=== PATIENT | female | born 1950 ===

== ENCOUNTER → 2017-05-18 | Outpatient (CLI) | payer OTHER | LOC: FIMAGING 07:59 | PROVIDERS: ATTEND Internal Medicine | DX: Z12.31 Encounter for screening mammogram for malignant neoplasm of breast (principal) | CPT/HCPCS: G0202 ==

== ENCOUNTER → 2018-02-15 | Outpatient (CLI) | payer OTHER | LOC: FIMAGING 09:09 | PROVIDERS: ATTEND Nurse Practitioner | DX: Z13.820 Encounter for screening for osteoporosis (principal); M54.9 Dorsalgia, unspecified; Z87.81 Personal history of (healed) traumatic fracture ==

== ENCOUNTER → 2018-07-04 | Outpatient (CLI) | payer OTHER | LOC: FIMAGING 09:00 | PROVIDERS: ATTEND Nurse Practitioner | DX: Z12.31 Encounter for screening mammogram for malignant neoplasm of breast (principal) ==

== ENCOUNTER 2018-09-14 14:13 | Observation (INO) | payer OTHER ==
[2018-09-14] MEDS ORDERED: NS 1,000 ML IV ONE (14:28)
--- NOTE | 2018-09-14 14:34 | EDPHY ---
H & P Stated Complaint: bilat forearm/elbow pain to axilia pain x10 days,"sweaty "x24hrs Source: Patient Exam Limitations: No limitations - Medical/Surgical History Hx Asthma: No Hx Chronic Respiratory Disease: No Hx Diabetes: Yes Hx Cardiac Disease: No Hx Renal Disease: No Hx Cirrhosis: No Hx Alcoholism: No Hx HIV/AIDS: No Hx Splenectomy or Spleen Trauma: No Other PMH: med hx- IBS, HTN,Heart murmur,diabetes type 2. surg- marycruz,hyst and appy - Family History Significant Family History: Heart disease, Vascular disease - Social History Smoking Status: Former smoker Alcohol Use: Sober Drug Use: None Time Seen by Provider: 09/14/18 14:25 HPI/ROS: CHIEF COMPLAINT: Chest pain HISTORY OF PRESENT ILLNESS: Patient is a 67-year-old female with history of diabetes and hypertension who comes to the emergency department complaining of bilateral elbow pain for the last week. She states that her left elbow appears slightly swollen. She denies any trauma or injury. She states that last night around 10:00 p.m. The pain began radiating up her left arm into her axilla and lateral chest wall and also at her lateral left neck. She again denies any trauma or injury. No fevers. No cough or shortness of breath. No dizziness or lightheadedness. She knows that she was diaphoretic last night and again this morning. Her symptoms improved slightly with ibuprofen. She takes aspirin daily and did take a full aspirin today. She denies any history of heart disease but her mom did have a heart attack. Severity: Moderate Modifying factors: Some improvement with ibuprofen REVIEW OF SYSTEMS: Constitutional: denies: chills, fever, recent illness, recent injury EENTM: denies: blurred vision, double vision, nose congestion Respiratory: denies: cough, shortness of breath Cardiac: See HPI Gastrointestinal/Abdominal: denies: abdominal pain, diarrhea, nausea, vomiting, blood streaked stools Genitourinary: denies: dysuria, frequency, hematuria, pain Musculoskeletal: denies: joint pain, muscle pain Skin: denies: lesions, rash, jaundice, bruising Neurological: denies: headache, numbness, paresthesia, tingling, dizziness, weakness Hematologic/Lymphatic: denies: blood clots, easy bleeding, easy bruising Immunologic/allergic: denies: HIV/AIDS, transplant 10 systems reviewed and negative except as noted EXAM: GENERAL: Well-appearing, overweight and in no acute distress. HEAD: Atraumatic, normocephalic. EYES: Pupils equal round and reactive to light, extraocular movements intact, sclera anicteric, conjunctiva are normal. ENT: TMs normal, nares patent, oropharynx clear without exudates. Moist mucous membranes. NECK: Normal range of motion, supple without lymphadenopathy or JVD. LUNGS: Breath sounds clear to auscultation bilaterally and equal. No wheezes rales or rhonchi. HEART: Regular rate and rhythm without murmurs, rubs or gallops. ABDOMEN: Soft, nontender, normoactive bowel sounds. No guarding, no rebound. No masses appreciated. BACK: No CVA tenderness, no spinal tenderness, step-offs or deformities EXTREMITIES: Normal range of motion, no pitting or edema. No clubbing or cyanosis. NEUROLOGICAL: Cranial nerves II through XII grossly intact. Normal speech, normal gait. 5/5 strength, normal movement in all extremities, normal sensation , normal reflexes PSYCH: Normal mood, normal affect. SKIN: Warm, dry, normal turgor, no visible rashes or lesions. 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 [employer] ( Raheel Villarreal) Constitutional: Initial Vital Signs Temperature (C) 36.8 C 09/14/18 14:17 Heart Rate 75 09/14/18 14:17 Respiratory Rate 16 09/14/18 14:17 Blood Pressure 158/83 H 09/14/18 14:17 O2 Sat (%) 96 09/14/18 14:17 O2 Delivery Mode Room Air Allergies/Adverse Reactions: No Known Allergies Allergy (Verified 09/14/18 14:23) Home Medications: Medication Instructions Recorded Cholecalciferol Vit D3 [Vitamin D3 1,000 units PO DAILY 08/09/15 (*)] Hydrochlorothiazide 25 mg PO DAILY 08/09/15 Olmesartan Medoxomil [Benicar] 20 mg PO DAILY 08/09/15 Pantoprazole Sodium [Protonix 40mg 40 mg PO DAILY 08/09/15 (*)] Temazepam [Restoril 15 MG (*)] 15 mg PO HS PRN 08/09/15 Aspirin EC [Aspirin EC 325 mg (*)] 325 mg PO DAILY 09/14/18 Fluticasone Nasal [Flonase Nasal 1 sprays NASAL BID 09/14/18 [place]] metFORMIN HCL [Glucophage 1000 mg] 1,000 mg PO BIDMEAL 09/14/18 oxyCODONE IR [Oxycodone Ir (*)] 5 mg PO Q4HRS PRN #20 tab 09/15/18 Medical Decision Making - Diagnostics EKG Interpretation: An EKG obtained and was read and documented in trace view. Please see trace view for full reading and report. An EKG obtained and was read and documented in trace view. Please see trace view for full reading and report. Sinus rhythm , no acute ischemic changes, no previous for comparison (Harsha Finley) Imaging Results: Imaging Impressions Chest X-Ray 09/14/18 14:28 Impression: 1. Mild chronic bronchitis. 2. No definite pneumonia. 3. No pleural effusion or pneumothorax. Two view chest x-ray: No focal infiltrates or other significant abnormalities by my interpretation (Raheel Villarreal) ED Course/Re-evaluation: This patient signed over to me at 3:00 p.m.. I interviewed the patient and she described having intermittent pains primarily in her left arm over the past 2 weeks since doing a CPR QI. However today at 11:00 a.m. She developed pain that radiated from her arm into her lateral chest and became severe intensity up to 10/10 for period of 20 min or so associated with diaphoresis and nausea. The pain is been constant since 11:00 a.m. Today and is now 6/10 intensity with no clear exacerbating factors. The onset was at rest. She does not recall having this type of discomfort before. She describes it as achy in nature. On her exam currently she has normal vital signs Eyes: Pupils equal react to light extraocular motions are intact Lungs: clear lungs bilaterally Cardiovascular: Regular rate and rhythm with no murmur gallop rub. No JVD or peripheral edema Neuro: GCS 15 no focal deficits Integumentary: No diaphoresis Given her ongoing discomfort and a flat T-wave in V2 on her EKG along with risk factors for coronary disease, ordered supple nitroglycerines. Patient had aspirin prior to arrival. I explained her the given her pain and risk factors for coronary disease she warrants admission. Patient understands in agrees with treatment plan for admission to [facility] Patient had resolution of her chest pain after 1 sublingual nitroglycerin remained stable on the monitor without symptoms for the rest of her ED course. I counseled regarding her heart score of 6-7 warranting admission. Patient reluctantly agrees to this but declines ACLS transport. She will have her drive her. She accepts the potential risk of cardiac arrest from going without EMS transport and accepts that risk. I discussed case with Dr. Michele Campbell, hospitalist who accepts patient for transfer to [facility] to PCU for further workup (Raheel Villarreal) 3:00 p.m. patient's lab work and x-ray are pending. Care transferred to Dr. Raheel Villarreal. (Harsha Finley) Differential Diagnosis: Partial list of the Differential diagnosis considered include but were not limited to; acute coronary disease, PE, musculoskeletal pain and although unlikely based on the history and physical exam, I also considered dissection, pneumonia. (Harsha Finley) - Data Points Laboratory Results: Laboratory Results 09/14/18 14:48 POC CBC, metabolic panel, D-dimer are all normal (Raheel Villarreal) Medications Given: Discontinued Medications Acetaminophen (Tylenol) 1,000 mg PO EDNOW ONE Stop: 09/14/18 15:38 Last Admin: 09/14/18 15:40 Dose: 1,000 mg Acetaminophen (Tylenol) 650 mg PO Q6HRS PRN PRN Reason: Pain, Mild/Fever, Can Take PO Stop: 03/13/19 18:14 Last Admin: 09/15/18 06:09 Dose: 650 mg Aspirin (Aspirin) 325 mg PO DAILY STEVE Stop: 03/14/19 08:59 Last Admin: 09/15/18 07:59 Dose: 325 mg Enoxaparin Sodium (Lovenox) 40 mg SC DAILY STEVE Stop: 03/14/19 08:59 Last Admin: 09/15/18 08:00 Dose: Not Given Fluticasone Propionate (Flonase Nasal [place]) 1 sprays [place] BID STEVE Stop: 03/13/19 20:59 Last Admin: 09/15/18 17:27 Dose: Not Given Hydrochlorothiazide (Hydrochlorothiazide) 25 mg PO DAILY [facility] Stop: 03/14/19 08:59 Last Admin: 09/15/18 07:59 Dose: 25 mg Sodium Chloride (Ns) 1,000 mls @ 0 mls/hr IV EDNOW ONE; Wide Open PRN Reason: Protocol Stop: 09/14/18 14:29 Last Admin: 09/14/18 14:51 Dose: 1,000 mls Metformin HCl (Glucophage) 1,000 mg PO BIDMEAL STEVE Stop: 03/14/19 07:59 Last Admin: 09/15/18 07:59 Dose: 1,000 mg Nitroglycerin (Nitrostat) 0.4 mg SL Q5M PRN PRN Reason: Chest Pain Last Admin: 09/14/18 15:17 Dose: 0.4 mg Olmesartan (Benicar) 20 mg PO DAILY [facility] Stop: 03/14/19 08:59 Last Admin: 09/15/18 07:59 Dose: 20 mg Pantoprazole Sodium (Protonix) 40 mg PO DAILY [facility] Stop: 03/14/19 08:59 Last Admin: 09/15/18 07:59 Dose: 40 mg Point of Care Test Results: Chemistry 09/14/18 14:57 POC Troponin I 0.01 ng/mL ng/mL (0.00-0.08) Comprehensive Metabolic Panel CMP Collection Date 09/14/18 CMP Collection Time 14:40 Sodium 145 Potassium 3.3 Chloride 106 TCO2 26 Glucose 120 BUN 15 Creatinine 0.9 Calcium 10.3 Total Protein 7.4 Albumin 3.9 Alkaline Phosphatase 62 ALT 33 AST 38 Total Bilirubin 0.6 Basic Metabolic Panel Chloride 106 Creatinine 0.9 D-Dimer D-Dimer Collection Date 09/14/18 D-Dimer Collection Time 14:48 D-Dimer (ng/ml) <100NG/ML Departure - Departure Disposition: [facility] Inpatient Acute Clinical Impression: Chest pain Qualifiers: Chest pain type: unspecified Qualified Code(s): R07.9 - Chest pain, unspecified Condition: Fair
--- NOTE | 2018-09-14 14:59 | CPEKG ---
Test Reason : OPEN Blood Pressure : / mmHG Vent. Rate : 068 BPM Atrial Rate : 067 BPM P-R Int : 153 ms QRS Dur : 088 ms QT Int : 401 ms P-R-T Axes : 018 024 006 degrees QTc Int : 427 ms Sinus rhythm Borderline T abnormalities, anterior leads Confirmed by Harsha Finley ([id number]) on 09/14/2018 2:58:58 PM Referred By: Confirmed By:Harsha Finley
[2018-09-14] MEDS ORDERED: NITROGLYCERIN 0.4 MG BTL SL PRN ×2 (15:09→17:58)
[2018-09-14] MEDS ORDERED: ACETAMINOPHEN 500 MG TAB PO ONE (15:37)
[2018-09-14 15:59] LABS: PLATELET COUNT 169 10^3/uL (150-400)
[2018-09-14] MEDS ORDERED: oxyCODONE IR 5 MG TAB PO PRN (18:15)
[2018-09-14] MEDS ORDERED: TEMAZEPAM 15 MG CAP PO PRN (20:03)
--- NOTE | 2018-09-14 20:31 | PDGENHP ---
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 She was recertified for CPR/ BLS about 2 weeks ago. Since that time she's had left forearm muscle pain. Yesterday she noticed the pain radiated up her left arm. Then this morning the pain again radiated up her arm to her chest. This was associated with diaphoresis and nausea which prompted her to go to the ED at [facility]. At the [facility], her pain was relieved with one dose of nitroglycerin. The pain is not exertional , pleuritic, or positional. She hasn't had symptoms like this before. Denies associated dizziness or palpitations. She had a stress test about 20 years ago that was normal. At the [facility], she had a negative troponin and non-ischemic ECG. Given her elevated HEART score she was sent to [facility] for further testing. History Information - Allergies/Home Medication List Allergies/Adverse Reactions: No Known Allergies Allergy (Verified 09/14/18 14:23) Home Medications: Cholecalciferol Vit D3 [Vitamin D] 1,000 units PO DAILY 08/09/15 [Last Taken ] Hydrochlorothiazide [Hydrochlorothiazide] 25 mg PO DAILY 08/09/15 [Last Taken ] Olmesartan Medoxomil [Benicar] 20 mg PO DAILY 08/09/15 [Last Taken 09/14/18] Pantoprazole Sodium [Protonix] 40 mg PO DAILY 08/09/15 [Last Taken 09/14/18] Temazepam [Restoril] 15 mg PO HS PRN 08/09/15 [Last Taken 09/13/18] Aspirin EC [Aspirin EC 325 mg (*)] 325 mg PO DAILY 09/14/18 [Last Taken 09/14/18 ] Fluticasone Nasal [Flonase Nasal [place] (RX)] 1 sprays NASAL BID 09/14/18 [Last Taken 09/13/18] metFORMIN HCL [Glucophage 1000 mg] 1,000 mg PO BIDMEAL 09/14/18 [Last Taken ] I have personally reviewed and updated: family history, medical history, social history, surgical history - Past Medical History Additional medical history: hypertension, type 2 non-insulin dependent diabetes , gerd - Surgical History Additional surgical history: hysterectomy, cholecystectomy - Family History Additional family history: mother with CAD in 70s, + diabetes, no known early CAD - Social History Smoking Status: Former smoker Alcohol Use: Sober Drug Use: None Additional social history: Lives with , 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[facility] [employer] Review of Systems Review of Systems: ROS: 10pt was reviewed & negative except for what was stated in HPI & below Physical Exam Physical Exam: Temp Pulse Resp BP Pulse Ox 36.6 C 67 13 139/75 H 98 09/14/18 18:05 09/14/18 18:05 09/14/18 18:05 09/14/18 18:05 09/14/18 18:05 Constitutional: no apparent distress, appears nourished, not in pain Eyes: PERRL, anicteric sclera, EOMI Ears, Nose, Mouth, Throat: moist mucous membranes, hearing normal, ears appear normal, no oral mucosal ulcers Cardiovascular: regular rate and rhythym, no murmur, rub, or gallop, No edema Respiratory: no respiratory distress, no rales or rhonchi, clear to auscultation Gastrointestinal: normoactive bowel sounds, soft, non-tender abdomen, no palpable masses Genitourinary: no bladder fullness, no bladder tenderness Skin: warm, normal color, no rashes or abrasions, no fluctuance, no induration, No mottled Musculoskeletal: other (tenderness over left arm) Neurologic: AAOx3 Psychiatric: interacting appropriately, not anxious, not encephalopathic, thought process linear Lab Data & Imaging Review 09/14/18 14:48 WBC 7.44 10^3/uL (3.80-9.50) 09/14/18 14:48 RBC 4.48 10^6/uL (4.18-5.33) 09/14/18 14:48 Hgb 13.6 g/dL (12.6-16.3) 09/14/18 14:48 Hct 38.7 % (38.0-47.0) 09/14/18 14:48 MCV 86.4 fL (81.5-99.8) 09/14/18 14:48 MCH 30.4 pg (27.9-34.1) 09/14/18 14:48 MCHC 35.1 g/dL (32.4-36.7) 09/14/18 14:48 RDW 12.9 % (11.5-15.2) 09/14/18 14:48 Plt Count 169 10^3/uL (150-400) 09/14/18 14:48 MPV 13.0 fL (8.7-11.7) H 09/14/18 14:48 Neut % (Auto) 65.5 % (39.3-74.2) 09/14/18 14:48 Lymph % (Auto) 25.9 % (15.0-45.0) 09/14/18 14:48 [place] % (Auto) 6.3 % (4.5-13.0) 09/14/18 14:48 Eos % (Auto) 1.3 % (0.6-7.6) 09/14/18 14:48 Baso % (Auto) 0.7 % (0.3-1.7) 09/14/18 14:48 Nucleat RBC Rel Count 0.0 % (0.0-0.2) 09/14/18 14:48 Absolute Neuts (auto) 4.87 10^3/uL (1.70-6.50) 09/14/18 14:48 Absolute Lymphs (auto) 1.93 10^3/uL (1.00-3.00) 09/14/18 14:48 Absolute Monos (auto) 0.47 10^3/uL (0.30-0.80) 09/14/18 14:48 Absolute Eos (auto) 0.10 10^3/uL (0.03-0.40) 09/14/18 14:48 Absolute Basos (auto) 0.05 10^3/uL (0.02-0.10) 09/14/18 14:48 Absolute Nucleated RBC 0.00 10^3/uL (0-0.01) 09/14/18 14:48 Immature Gran % 0.3 % (0.0-1.1) 09/14/18 14:48 Immature Gran # 0.02 10^3/uL (0.00-0.10) 09/14/18 14:48 POC Troponin I 0.01 ng/mL (0.00-0.08) 09/14/18 14:57 Visualized and Interpreted imaging results: Yes Interpretation: CXR: no infiltrate or effusion, normal heart size Visualized and Interpreted EKG results: Yes EKG additional interpertation: ECG: NSR, flattened T wave in V2, no ischemic changes, good R wave progression Assessment & Plan Assessment: 67yo F with history of htn, 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 Plan: 1. Chest discomfort: Somewhat atypical pain for angina, seems more consistent with MSK etiology but given her intermediate risk of coronary disease will further evaluate. D-dimer negative. - Trend troponin/ecg - If above remain negative, plan for exercise stress test in AM per protocol - Telemetry - ASA 325mg 2. Hypertension: BP controlled, continue home meds. 3. Type 2 diabetes: Continue home metformin. 4. GERD: Home PPI. VTE ppx: LMWH Code: full Dispo: Admit under observation
[2018-09-14] MEDS: FLUTICASONE NASAL 120 SPRAYS/16 GM MDI EACHNARE SCH (21:25)
[2018-09-14] MEDS: ACETAMINOPHEN 325 MG TAB PO PRN (21:26)
[2018-09-15] MEDS: ACETAMINOPHEN 325 MG TAB PO PRN (06:09)
[2018-09-15] MEDS ORDERED: metFORMIN HCL 500 MG TAB PO SCH (08:00)
[2018-09-15] MEDS ORDERED: ASPIRIN 325 MG TAB PO SCH (09:00)
[2018-09-15] MEDS ORDERED: PANTOPRAZOLE SODIUM 40 MG TAB PO SCH (09:00)
[2018-09-15] MEDS ORDERED: HYDROCHLOROTHIAZIDE 25 MG TAB PO SCH (09:00)
[2018-09-15] MEDS ORDERED: OLMESARTAN MEDOXOMIL 20 MG TAB PO SCH (09:00)
[2018-09-15] MEDS ORDERED: ENOXAPARIN 40 MG/0.4 ML SYR SC SCH (09:00)
--- NOTE | 2018-09-15 12:47 | PDCARST ---
CAR Stress Test Results Type of Stress Test: TM stress test Indication: cp Description of Procedure: After informed consent was obtained, pt was exercised according to Dalton Protocol. Monitoring was performed with standard stress product tester electrode placement. Vital signs were monitored according to protocol throughout the procedure. STRESS EKG AND HEMODYNAMIC DATA. Exercise time: 5 min. This is equivalent to: 6.2 METS. Resting heart rate: 78 bpm. Resting blood pressure: 138/78 mmHg. Resting O2 saturation: 97 %. Peak heart rate: 172 bpm. This is 111% of age predicted maximum heart rate response. Peak blood pressure: 176/84 mmHg. Exercise O2: 94 %. Arrhythmias : None. Reason for termination: The test was stopped due to maximal effort. Symptoms: The patient experienced no typical symptoms of angina during stress or recovery. STRESS TEST ANALYSIS. Baseline ECG: SR. Stress ECG: ST with 1.[address] depression. Rhythm: No arrhythmias noted during exercise and recovery. Blood pressure: Normal blood pressure response to exercise. Exercise tolerance: The patient has average/below average exercise tolerance adjusted for age and gender. Symptoms: No exercise induced symptoms. Impression: The Mcallister Treadmill Score is -2.5 consistent with intermediate risk. Conclusion: Abnormal TM stress test. Recommend repeat stress testing with nuclear images.
--- NOTE | 2018-09-15 15:15 | PDCARST ---
CAR Stress Test Results Type of Stress Test: Nuclear TM stress test Indication: cp/abnormal TM stress test Description of Procedure: After informed consent was obtained, pt was exercised according to Dalton Protocol. Monitoring was performed with standard stress blood tester electrode placement. Vital signs were monitored according to protocol throughout the procedure. STRESS EKG AND HEMODYNAMIC DATA. Exercise time: 4: 30 min. This is equivalent to: 5.8 METS. Resting heart rate: 83 bpm. Resting blood pressure: 140/82 mmHg. Resting O2 saturation: 96 %. Peak heart rate: 170 bpm. This is 110% of age predicted maximum heart rate response. Peak blood pressure: 154/84 mmHg. Exercise O2: 95 %. Arrhythmias : None. Reason for termination: The test was stopped due to maximal effort. Symptoms: The patient experienced no typical symptoms of angina during stress or recovery. STRESS TEST ANALYSIS. Baseline ECG: SR. Stress ECG: ST with [address] depression. Rhythm: No arrhythmias noted during exercise and recovery. Blood pressure: Normal blood pressure response to exercise. Exercise tolerance: The patient has average/below average exercise tolerance adjusted for age and gender. Symptoms: No exercise induced symptoms. Impression: DST: -.5 (intermediate risk) Conclusion: Await nuclear images.
[2018-09-15 15:24] VITALS: BP 154/95
--- NOTE | 2018-09-15 15:30 | ASMTCMCOM ---
CM Note CM Note Notes: Pts case discussed in tx rounds. Pt is a 67 y/o female admitted for chest pain. 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. 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 Pt will most likely d/c independent when medically stable. No therapies ordered at this time. CM available for changes. Plan: Independent Date Signed: 09/15/2018 03:29 PM Electronically Signed By:MITCH Reyes
[2018-09-15] MEDS: FLUTICASONE NASAL 120 SPRAYS/16 GM MDI EACHNARE SCH (17:27)
--- NOTE | 2018-09-15 18:57 | PDDCSUM ---
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 She was admitted. She had a Nuclear Stress Test which was unremarkable. W/u was unremarkable. She will f/u with her PCP next week. Cont with primary prevention Her left arm pain is likely MSK in nature DDX: 1. Chest discomfort: Somewhat atypical pain for angina, seems more consistent with MSK etiology - ASA 325mg 2. Hypertension: BP controlled, continue home meds. 3. Type 2 diabetes: Continue home metformin. 4. GERD: Home PPI. Exam: NAD AAOX3 RRR CTA B S/NT/ND MEDS: SEE MED REC TOTAL TIME SPENT ON D/C IS 33 MINS
== END 2018-09-15 17:42 | disposition home or self-care (01) ==
LOC: CED 14:13 → CEDHOLD 15:35 → F2W 17:50
PROVIDERS: ADMIT Internal Medicine; ATTEND Family Medicine
DX: R07.89 Other chest pain (principal); I10 Essential (primary) hypertension; E11.9 Type 2 diabetes mellitus without complications; G47.33 Obstructive sleep apnea (adult) (pediatric); Z79.84 Long term (current) use of oral hypoglycemic drugs; Z87.891 Personal history of nicotine dependence; E86.0 Dehydration
CPT/HCPCS: 71046; 78452; 93005; 93017; A9500; G0378; 84484-PO; J1650